=== PATIENT | male | born 1990 | race African-American/Black ===

== ENCOUNTER 2017-01-12 11:44 | Inpatient (IN) ==
[2017-01-12] MEDS ORDERED: HYDROmorphone 2 MG/1 ML VIAL IV STA (13:00)
[2017-01-12] MEDS ORDERED: PANTOPRAZOLE 40 MG VIAL IV STA (13:00)
[2017-01-12] MEDS ORDERED: SODIUM CHLORIDE 0.9% 2,000 ML IV STA (13:00)
[2017-01-12] MEDS ORDERED: ONDANSETRON 4 MG/2 ML VIAL IV STA (13:00)
--- NOTE | 2017-01-12 13:08 | Emergency Department Note ---
Jerson Mcmullen Hilary, am scribing for, and in the presence of, Brant Corona MD 13: 00. Chloe Mcmullen James D, MD, personally performed the services described in this documentation, ascribed by Lindsay Arthur in my presence, and it is both accurate and complete . Arrival - Arrival Chief Complaint: Abdominal / Flank Pain Stated Complaint: No food intake for three days ED Nursing Triage Note: n/v abd cramping since thursday. reports unable to hold down fluids. has a hx of pancreatits. Mode of Arrival: Ambulatory Limitations: No Limitations Source: Patient, RN Notes Reviewed Time Seen by Provider: 01/12/17 12:50 - History of Present Illness HPI Narrative: Pt is a 26 y/o male presenting to the ED with c/o abdominal pain which onset 3 days ago. Pt reports being unable to hold down fluids and has a PMHx of Pancreatitis. Pt confirms nausea, vomiting, slight dysuria, chills, fever and abdominal pain that radiates to his back but denies diarrhea. No other complaints or problems stated in the ED. Onset (ago): day(s) Consistency: constant Severity: mild Severity scale (1-10): 1 Quality: sharp Allergies/Adverse Reactions: Allergies Allergy/AdvReac Type Severity Reaction Status Date / Time No Known Allergies Allergy Verified 11/14/15 23:38 Home Medications: Home Medications Medication Instructions Recorded Confirmed Type Dicyclomine Cap/Tab [Bentyl 20 mg PO QID PRN #20 tablet 11/15/15 Rx Cap/Tab] Ondansetron [Ondansetron Odt] 8 mg PO Q4H PRN #10 tab.rapdis 11/15/15 Rx Pantoprazole Sodium [Protonix] 40 mg PO DAILY #30 granpkt. 11/15/15 Rx Review of System - Review of System 12 point system: reviewed and no additional remarkable complaints except as stated - Review of System Constitutional: Present: chills, fever Gastrointestinal: Present: abdominal pain, nausea, vomiting. Absent: diarrhea Genitourinary male: Present: dysuria Musculoskeletal: Present: lower back pain Medical,Surgical,& Family Hx - Medical History Gastrointestinal: History of: Pancreatitis - Social History Smoking Status: Current every day smoker Exam Physical Examination: GENERAL: This is a well-nourished, well-developed black male in no apparent distress. VITAL SIGNS: Temperature: 98.1 Pulse: 59 Respiratory: 18 Blood Pressure: 162 /89 O2Sat: 99 HEENT: Head is normocephalic and atraumatic. Pupils are equally round and reactive to light. Extraocular movement are intact. Oropharynx is benign with moist mucous membranes. NECK: Neck is soft and supple without tenderness. There are no masses. There is no lymphadenopathy. LUNGS: Lungs are clear to auscultation bilaterally. Chest rises symmetrically. There is no chest wall tenderness. CV: Heart is regular rate and rhythm without murmurs, rubs, or gallops. ABDOMEN: Abdomen is soft, non-tender to palpation. There are no abnormal masses palpated. There is no organomegaly. Bowel sounds are present and active. SKIN: Skin is warm and dry. No rash. EXTREMITIES: Patient has full range of motion without tenderness. There is no pedal edema. NEUROLOGIC: Awake, alert, and oriented x4. Cranial nerves II through XII are grossly intact. There are no motorsensory deficits. PSYCHIATRIC: Normal affect. Normal mood. Vital Signs: Vital Signs Temperature 98.1 F 01/12/17 11:47 Pulse Rate 59 L 01/12/17 11:47 Respiratory Rate 18 01/12/17 11:47 Blood Pressure 162/89 01/12/17 11:47 O2 Sat by Pulse Oximetry 99 01/12/17 11:47 Course - Consultations Consultation #1: Discussed with hospitalist. Patient will be admitted to their service. Time: 15:25 Results - Labs CBC & BMP: 01/12/17 13:20 01/12/17 13:20 Lab Results: I have reviewed the patients labs Labs: Laboratory Tests 01/12/17 13:20 Sodium 140 Potassium 3.8 Chloride 102 Carbon Dioxide 31 BUN 8 Globulin 3.6 H Lipase 2378.0 H Laboratory Tests 01/12/17 13:20 WBC 10.7 RBC 6.35 H Hgb 19.9 H Hct 54.0 H MCV 85.0 L MCHC 36.9 H [place] # (Auto) 1.2 H Laboratory Tests 01/12/17 13:20 Lipase 2378.0 H Laboratory Tests 01/12/17 13:20 Urine pH 8.0 Ur Specific [place] 1.029 Urine Protein 100 Urine Ketones 80 Urine Urobilinogen 4.0 H Urine RBC 2 Urine WBC <1 Laboratory Tests 01/12/17 13:20 Urine Opiates Screen Positive H Ur Barbiturates Screen Negative Ur Phencyclidine Scrn Negative U Amphetamine/Methamph Negative U Benzodiazepines Scrn Negative U Cocaine Metab Screen Negative U Cannabinoids Screen Positive H - Diagnostic Findings Procedure: Abdominal x-ray: image reviewed by me (Nonspecific gas pattern, no free air. Gas in the rectum.), Chest x-ray: image reviewed by me (No pleural effusions, no infiltrates, no cardiomegaly.) Disposition Clinical Impression: Acute pancreatitis Case discussed with: patient Disposition: Still a Patient Condition: Stable
[2017-01-12] MEDS ORDERED: PANTOPRAZOLE 40 MG VIAL IV ONE (13:28)
[2017-01-12] MEDS ORDERED: HYDROmorphone 2 MG/1 ML VIAL ONE ×2 (13:28→13:46)
[2017-01-12] MEDS ORDERED: ONDANSETRON 4 MG/2 ML VIAL ONE (13:28)
--- NOTE | 2017-01-12 13:29 | XRay Report ---
Portable chest Date: 01/12/2017 Clinical history: Generalized abdominal pain Comparison: 11/15/2015 Technique: Portable AP sitting chest Findings: The heart is normal in size. The lungs and mediastinum are stable in appearance. No acute osseous findings. Impression: No acute cardiopulmonary pathology identified. PROCEDURE INTERPRETED AT [facility] DEPARTMENT OF RADIOLOGY Final Report Signed by: Dr. Gabby Judge
--- NOTE | 2017-01-12 13:31 | XRay Report ---
Exam: XR abdomen 2V Date: 01/12/2017 1:01 PM Comparison: 11/15/2015 Indication: Generalized abdominal pain Technique:[Supine and erect abdomen] Findings: Nonobstructed bowel gas pattern with no free air. 36 mm density in the inferior mid pelvis which is probably related to fecal material. Minimal levoscoliosis of the lumbar spine. Impression: Nonobstructed bowel gas pattern. Minimal levoscoliosis of the lumbar spine. PROCEDURE INTERPRETED AT [facility] DEPARTMENT OF RADIOLOGY Final Report Signed by: Dr. Gabby Judge
[2017-01-12 14:06] LABS: Albumin 4.4 G/DL (3.4-5.0); Calcium 9.9 MG/DL (8.5-10.1); Osmolality,Calculated 276.4 MOS/KG (273-304); Potassium 3.8 MMOL/L (3.5-5.1)
[2017-01-12 14:10] LABS: Basophils % 0.4 % (0.0-0.8); Eosinophils % 0.3 % (0.00-10.9); Hemoglobin 19.9 GM/DL (14.0-18.0); Immature Granulocytes % 0.3 %; Immature Granulocytes Absolute 0.03 #; Lymphocytes # 2.5 10*3/uL (1.4-4.0); Lymphocytes % 23.5 % (21.2-54.2); Mean Corpuscular HGB Conc 36.9 GM/DL (32-36); Mean Corpuscular Hemoglobin 31 PG (27-34); Mean Platelet Volume 10.9 FL (9.6-12.0); Monocytes # 1.2 10*3/uL (0.11-0.8); Monocytes % 11.3 % (1.7-12.7); Neutrophils # 6.9 10*3/uL (1.4-7.4); Neutrophils % 64.2 % (38.7-73.9); Platelet Count 228 T/CUMM (130-400); Red Blood Count 6.35 MC/CUMM (3.8-5.5); Red Cell Distribution Width 12.7 % (9.3-17.3); White Blood Count 10.7 T/CUMM (4-12)
[2017-01-12 15:01] LABS: Apearance,Urine CLEAR (Clear); Bilirubin,Urine Negative (Negative); Blood, Urine Negative (Negative); Glucose,Urine (UA) Negative (Negative); Ketones,Urine 80 mg/dL (Negative); Mucus,Urine Occasional /LPF (Occasional); Nitrite,Urine Negative (Negative); Protein,Urine 100 MG/DL; RBC,Urine 2 /HPF (0-4); Urine Color Yellow (Yellow); Urine Specific Gravity 1.029 (1.001-1.035); WBC,Urine <1 /HPF (0-6)
[2017-01-12 15:24] LABS: Barbiturates Screen,Urine Negative (Negative); Benzodiazepines Screen,Urine Negative (Negative); Cannabinoid Screen,Urine Positive (Negative); Opiate Screen,Urine Positive (Negative); Phencyclidine Screen,Urine Negative (Negative)
[2017-01-12] MEDS ORDERED: MORPHINE 2 MG/1 ML SYRINGE IV PRN (16:55)
[2017-01-12] MEDS ORDERED: ACETAMINOPHEN 325 MG TABLET PO PRN (16:59)
[2017-01-12] MEDS: SODIUM CHLORIDE 0.9% 1,000 ML IV SCH ×2 (17:20→22:56)
--- NOTE | 2017-01-12 17:36 | Hospitalist History & Physical ---
<Radha Connors - Last Filed: 01/12/17 17:43> Assessment and Plan (1) Acute pancreatitis Status: Acute Assessment and plan: Admit to MedSurg. IVF @ 125 ml/hr. IV pain meds. Monitor lipase level. Current Visit: Yes History of Present Illness Chief complaint: Abdominal pain History of present illness: Mr. Porter is a 26 year old male with a history of pancreatitis who presented to the ED today with complaints of abdominal pain. Patient states that his normal state of health until Thursday when he began to experience abdominal pain. Pt. describes the pain as "all over". Pt. denies taking any medication for the pain. Pt. reports loss of appetite since Thursday. He also reports nausea and vomiting. He reports fever, chills, night sweats but denies chest pain. Pt. states he felt that he had pancreatitis because he felt this same way in Mar when he was first diagnosed. Pt. admits to alcohol and tobacco use. Pt.'s case has been discussed with Dr. Coleman and the patient will be admitted to the hospitalist service for further evaluation and treatment. Home Medications Medication Instructions Recorded Confirmed Type No Known Home Medications [No 01/12/17 01/12/17 History Known Home Medications] Allergies Allergy/AdvReac Type Severity Reaction Status Date / Time No Known Allergies Allergy Verified 11/14/15 23:38 Medical,Surgical,& Family Hx - Medical History Gastrointestinal: History of: Pancreatitis - Social History Smoking Status: Current every day smoker Frequency of Alcohol Use: Rarely Type of Drug Use: None Marital Status: Single Lives With:: friend Functional capacity: independent ambulation - Constitutional Constitutional: Present: chills, fever(s) - Cardiovascular Cardiovascular: Present: dyspnea on exertion. Absent: edema - Gastrointestinal Gastrointestinal: Present: abdominal pain, nausea, vomiting - Genitourinary Genitourinary: Absent: difficulty urinating - Neurological Neurological: Present: dizziness. Absent: confusion - Psychiatric Psychiatric: Absent: anxiety - Hematologic/Lymphatic Hematologic/Lymphatic: Absent: easy bruising Exam - Constitutional Vitals: Period Temp Pulse Resp BP Sys/Sandoval Pulse Ox Last 24 Hr 98.1 F-98.2 F 59-66 18-18 132-162/73-89 98-99 General appearance: normal weight, no acute distress - Head Head exam: Present: normal inspection, normocephalic - Eye Eye exam: Present: EOMI Pupils: Present: FABY - Respiratory Respiratory exam: Present: clear to auscultation bilaterally. Absent: wheezes - Cardiovascular Cardiovascular exam: Present: regular rate and rhythm - GI/Abdominal GI/Abdominal exam: Present: normal bowel sounds, tenderness, soft - Extremities Exam Extremities exam: Present: normal inspection, normal capillary refill, full ROM. Absent: edema - Neurological Exam Neurological exam: Present: alert, oriented X3 - Psychiatric Psychiatric exam: Present: normal affect, normal mood - Skin Skin exam: Present: normal color, warm, dry Results - Labs CBC & BMP: 01/12/17 13:20 01/12/17 13:20 Lab Results: I have reviewed the past 24 hour labs <Reanna Coleman - Last Filed: 01/12/17 18:41> History of Present Illness History of present illness: Patient seen and examined along with [employer]E[facility] LAB ASSISTANT Connors, agree with history, assessment and plan as documented. Patient being admitted with pancreatitis. IV fluids and pain control. Exam - Constitutional Vitals: Period Temp Pulse Resp BP Sys/Sandoval Pulse Ox Last 24 Hr 98.1 F-98.2 F 59-66 18-18 132-162/73-89 98-99 Results - Labs CBC & BMP: 01/12/17 13:20 01/12/17 13:20
[2017-01-13] MEDS: SODIUM CHLORIDE 0.9% 1,000 ML IV SCH ×4 (04:09→21:13)
[2017-01-13 05:17] LABS: Basophils # 0.1 10*3/uL (0.0-0.2); Basophils % 0.6 % (0.0-0.8); Eosinophils # 0.1 10*3/uL (0.0-0.87); Eosinophils % 1.2 % (0.00-10.9); Hematocrit 45.5 VOL% (42.0-52.0); Hemoglobin 16.1 GM/DL (14.0-18.0); Immature Granulocytes % 0.4 %; Immature Granulocytes Absolute 0.03 #; Lymphocytes # 3.6 10*3/uL (1.4-4.0); Lymphocytes % 41.9 % (21.2-54.2); Mean Corpuscular HGB Conc 35.4 GM/DL (32-36); Mean Corpuscular Hemoglobin 31 PG (27-34); Mean Corpuscular Volume 87.3 FL (87-102); Mean Platelet Volume 11.1 FL (9.6-12.0); Monocytes % 11.6 % (1.7-12.7); Neutrophils # 3.8 10*3/uL (1.4-7.4); Neutrophils % 44.3 % (38.7-73.9); Platelet Count 171 T/CUMM (130-400); Red Blood Count 5.21 MC/CUMM (3.8-5.5); Red Cell Distribution Width 12.8 % (9.3-17.3); White Blood Count 8.5 T/CUMM (4-12)
[2017-01-13 05:54] LABS: Albumin 3.2 G/DL (3.4-5.0); Magnesium 1.8 MG/DL (1.8-2.4); Osmolality,Calculated 279.1 MOS/KG (273-304); Risk Ratio 4.84; Total Protein 5.8 G/DL (6.4-8.3); VLDL CHOLESTEROL 17.6 MG/DL
[2017-01-13] MEDS: MULTIVITAMIN (CENTRUM) TABLET PO SCH (09:28)
[2017-01-13] MEDS: FOLIC ACID 1 MG TABLET PO SCH (09:28)
[2017-01-13] MEDS: THIAMINE 100 MG TABLET PO SCH (09:28)
--- NOTE | 2017-01-13 15:05 | Hospitalist Progress Note ---
Assessment and Plan (1) Acute pancreatitis Status: Acute Assessment and plan: Alcohol-related acute pancreatitis. Symptomatic some improvement noted will check lipase level again tomorrow continue IV fluid and liquid diet patient is advised to quit alcohol drinking. He was also apparently dehydrated with the hemoglobin hematocrit consistent with the polycythemia secondary to dehydration it has improved with the IV fluid will check the labs again tomorrow with lipase and also renal function Current Visit: Yes Hospitalist: Subjective Interval history: Patient is admitted yesterday with the abdominal pain and and carried pancreatitis he had a pancreatitis last year in March and this is his second episode. He has this episode started 4 days prior to admission. It is associated with the poor oral intake along with the nausea vomiting. No fever reported. He has not been on any medications prior to the hospitalization he admits using alcohol or tobacco. He had white count of 10.7 and the lipase was 2378. He has been on liquid diet and tolerating denies any vomiting getting IV fluid also. Abdominal pain is better but not resolved Exam - Constitutional Vitals: Period Temp Pulse Resp BP Sys/Sandoval Pulse Ox Last 24 Hr 97.6 F-98.6 F 53-80 16-20 110-142/73-91 97-100 General appearance: no acute distress - Respiratory Respiratory exam: Present: Bilateral equal air entry and clear to auscultation bilaterally. Absent: wheezes - Cardiovascular Cardiovascular exam: Present: regular rate and rhythm. No tachycardia - GI/Abdominal GI/Abdominal exam: - Extremities Exam Abdomen soft with some discomfort/tenderness in epigastrium without any rigidity or rebound bowel sounds present and normal Extremities exam: Present: normal inspection, normal capillary refill, full ROM. Absent: edema - Neurological Exam Neurological exam: Present: alert, oriented X3 - Psychiatric Psychiatric exam: Present: normal affect, normal mood - Skin Skin exam: Present: normal color, warm, dry. Results - Labs CBC & BMP: 01/13/17 04:20 01/13/17 04:20 Lab Results: I have reviewed the past 24 hour labs
[2017-01-14] MEDS: SODIUM CHLORIDE 0.9% 1,000 ML IV SCH ×2 (02:30→08:15)
[2017-01-14 05:22] LABS: Basophils % 0.5 % (0.0-0.8); Eosinophils # 0.1 10*3/uL (0.0-0.87); Eosinophils % 1.7 % (0.00-10.9); Hematocrit 42.4 VOL% (42.0-52.0); Hemoglobin 15.2 GM/DL (14.0-18.0); Immature Granulocytes % 0.2 %; Immature Granulocytes Absolute 0.02 #; Lymphocytes # 3.1 10*3/uL (1.4-4.0); Lymphocytes % 38.2 % (21.2-54.2); Mean Corpuscular HGB Conc 35.8 GM/DL (32-36); Mean Corpuscular Hemoglobin 31 PG (27-34); Mean Corpuscular Volume 85.8 FL (87-102); Mean Platelet Volume 11.3 FL (9.6-12.0); Monocytes # 0.8 10*3/uL (0.11-0.8); Monocytes % 10.2 % (1.7-12.7); Neutrophils % 49.2 % (38.7-73.9); Platelet Count 169 T/CUMM (130-400); Red Blood Count 4.94 MC/CUMM (3.8-5.5); Red Cell Distribution Width 12.7 % (9.3-17.3); White Blood Count 8.1 T/CUMM (4-12)
[2017-01-14 06:03] LABS: Albumin 3.2 G/DL (3.4-5.0); Bilirubin,Total 1.6 MG/DL (0.2-1.0); Calcium 8.2 MG/DL (8.5-10.1); Osmolality,Calculated 278.1 MOS/KG (273-304); Potassium 3.8 MMOL/L (3.5-5.1); Total Protein 5.7 G/DL (6.4-8.3)
[2017-01-14] MEDS: THIAMINE 100 MG TABLET PO SCH (08:13)
[2017-01-14] MEDS: MULTIVITAMIN (CENTRUM) TABLET PO SCH (08:13)
[2017-01-14] MEDS: FOLIC ACID 1 MG TABLET PO SCH (08:13)
--- NOTE | 2017-01-14 10:42 | Discharge Summary ---
Hospital Course - Hospital Course Hospital Course: Mr. Porter is a 26 year old male with a history of pancreatitis who presented to the ED today with complaints of abdominal pain. Patient states that his normal state of health until Thursday when he began to experience abdominal pain. Pt. describes the pain as "all over". Pt. denies taking any medication for the pain. Pt. reports loss of appetite since Thursday. He also reports nausea and vomiting. He reports fever, chills, night sweats but denies chest pain. Pt. states he felt that he had pancreatitis because he felt this same way in Mar when he was first diagnosed. Pt. admits to alcohol and tobacco use. He was admitted to the hospital for IV fluids and IV pain medications. His symptoms resolved and his lipase returned to normal. He is tolerating a clear liquid diet and is ready for discharge home. His symptoms have completely resolved and he has been advised to abstain from the use of alcohol and tobacco products. He was given smoking cessation counseling for 5 minutes. The patient is a full code. His home medications were reviewed and reconciled. He is instructed to follow-up with his primary care physician in 1 week. - Time spent with patient Time with patient DS: Greater than 30 minutes (Total time spent on this discharge was 36 minutes) Diagnosis - Discharge Diagnosis (1) Acute pancreatitis Status: Resolved Discharge Plan - Discharge Data Disposition: Disch To Home/Self Care Condition at Discharge: Stable Discharge Diet: advance to your usual diet, low fat, low cholesterol Activity: resume usual activities as tolerated Hygiene: no restrictions Weight Bearing at Discharge: full weight bearing Contact your physician if you experience:: fever over 101, Nausea/Vomiting, pain uncontrolled by pain medications - Discharge Medications Continue No Known Home Medications [No Known Home Medications] - Follow Up or Referral - Forms/Instructions Exam - Constitutional Vitals: Period Temp Pulse Resp BP Sys/Sandoval Pulse Ox Last 24 Hr 97.3 F-98.7 F 53-80 16-20 110-144/49-99 99-100 Discharge Results Procedures and tests throughout hospitalization: Pending Orders 01/14/17 15:10 US abdomen Routine Labs on day of discharge: Labs from last 24 hours 01/14/17 01/14/17 01/14/17 03:51 03:51 03:51 WBC 8.1 RBC 4.94 Hgb 15.2 Hct 42.4 MCV 85.8 L MCH 31 MCHC 35.8 RDW 12.7 Plt Count 169 MPV 11.3 Neut % (Auto) 49.2 Lymph % (Auto) 38.2 Chambers % (Auto) 10.2 Eos % (Auto) 1.7 Baso % (Auto) 0.5 Neut # (Auto) 4.0 Lymph # (Auto) 3.1 Chambers # (Auto) 0.8 Eos # (Auto) 0.1 Baso # (Auto) 0.0 Immature Gran % 0.2 Nucleated RBC % 0.0 Immature Gran # 0.02 Nucleated RBCs # 0.00 Immature Plt Fraction 0.0 Sodium 142 Potassium 3.8 Chloride 108 H Carbon Dioxide 28 Anion Gap 9.8 BUN 6 L Creatinine 0.80 GFR Calculation 159 BUN/Creatinine Ratio 7.00 Glucose 69 L Calculated Osmolality 278.1 Calcium 8.2 L Total Bilirubin 1.60 H AST 12 ALT 18 Alkaline Phosphatase 43 L Total Protein 5.7 L Albumin 3.2 L Globulin 2.5 Albumin/Globulin Ratio 1.2 Lipase 192.0 D DS: Provider Date of admission: 01/12/17 15:37 Primary care physician: . No PCP Attending physician on admission: Reanna Coleman MD Consults: 01/12/17 17:16 Consult to Dietitian [CONS] Routine Reason for Dietitian: Dietary Consult Consult to Pastoral Services [CONS] Routine Comment: Pastoral Screen: Request [employer] Visit Pastoral Screen Source of Request: Patient Discharging clinician: Lee Ann Morales MD Expected date of discharge: 01/14/17
[2017-01-14 11:19] VITALS: BP 159/76
--- NOTE | 2017-01-14 11:35 | Ultrasound Report ---
Exam: US abdomen Date: 01/14/2017 3:10 PM Comparison: None Indication: Generalized abdominal pain with possible pancreatitis Technique:[Multiple transabdominal real-time scans were obtained the abdomen. Color flow scans were obtained. Ultrasound images were captured and stored.] Findings: No gallbladder pathology identified. CBD is normal in size measuring 2.2 mm. Liver is normal in size with no masses. The spleen and visualized pancreas have an unremarkable appearance. Right kidney measures 78 mm in length. Left kidney measures 102 mm in length with no mass or hydronephrosis. The visualized aorta is normal in size with color flow documented in the IVC. Portions of the pancreas and aortic bifurcation are obscured by bowel gas. Impression: No gallbladder pathology identified. No definite pancreatic pathology identified. Portions of the pancreas are obscured by bowel gas. The right kidney is smaller in size than the left with cortical loss. The Ultrasound images were captured and stored. PROCEDURE INTERPRETED AT [facility] DEPARTMENT OF RADIOLOGY Final Report Signed by: Dr. Gabby Jugde
== END 2017-01-14 13:52 | disposition home or self-care (01) | DRG 440 ==
LOC: N.ED 11:44 → N.EDINP 15:37 → SUATTDRO 15:37 → N.3E 16:26
PROVIDERS: ADMIT Internal Medicine; ATTEND Family Medicine